=== PATIENT | female | born 1970 | race Caucasian/White ===

== ENCOUNTER 2017-09-12 16:01 | Emergency (ER) | payer SELFPAY ==
[2017-09-12] MEDS ORDERED: SODIUM CHLORIDE 0.9% 1000ML 1,000 ML IV STA (16:36)
[2017-09-12] MEDS ORDERED: PROMETHAZINE 25MG/ NS 50ML (IV) IV ONE (16:45)
[2017-09-12 17:28] VITALS: BP 171/84
== END 2017-09-12 18:11 | disposition home or self-care (01) ==
LOC: ER 16:01
DX: R50.9 Fever, unspecified (principal); R05 Cough; R11.0 Nausea; J11.1 Influenza due to unidentified influenza virus with other respiratory manifestations
CPT/HCPCS: 87400; 99283; J2550; J7030

== ENCOUNTER → 2020-07-26 | Outpatient (CLI) | payer OTHER ==
[~2020-07-26] MED LIST: COVID-19 VACC, MRNA(MODERNA)/PF 100 MCG/0.5 ML VIAL IM ONE
== END ==
LOC: VACCPMC 10:17
DX: Z23 Encounter for immunization (principal); Z20.828 Contact with and (suspected) exposure to other viral communicable diseases

== ENCOUNTER → 2020-09-02 | Outpatient (CLI) | payer OTHER | END | DRG 951 | LOC: VACCPMC 11:15 | DX: Z23 Encounter for immunization (principal); Z20.822 Contact with and (suspected) exposure to COVID-19 | CPT/HCPCS: 0012A; 91301 ==